=== PATIENT | female | born 1960 | race Caucasian/White ===

== ENCOUNTER 2016-05-31 17:09 | Emergency (ER) | payer OTHER ==
[~2016-05-31] VITALS: Ht 167.6 cm; Wt 88.5 kg
[~2016-05-31 17:09] MED LIST: HYDR-3534 PO; LORT7.5T3 PO; ONDA1TAB16 PO; Z.0.NO CURRENT MEDS; ZOFR4TAB3 SL
[2016-05-31 17:16] VITALS: BP 137/80; PULSE 91; RESP 16; TEMP 99.4; O2SAT 95
--- NOTE | 2016-05-31 17:21 | PD ---
HPI Chief Complaint: Cold / Flu Symptoms Time Seen by Provider: 17:21 Travel History International Travel<30 days: No Contact w/Intl Traveler<30days: No Traveled to known affect area: No History of Present Illness HPI 56-year-old female presents the emergency department with ongoing recurrent cough and cold symptoms since January. Patient states she was last treated in March with azithromycin, steroids, and inhaler, and she improved. Patient states she then got sick again in the last couple of weeks, but now is having increasing cough, chest congestion, chest pain with cough, and sore throat in the last 24 hours. She has also developed fever and chills. She gets short of breath with exertion, and has productive cough of yellow-green sputum. Patient is a smoker. She is allergic to codeine, Gantrisin, iodine, shellfish, sulfa, and Tylox. 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) Reproductive: No Respiratory: No Migraines: Yes Myocardial Infarction: No Renal Failure: No Seizures: Yes (ENCEPHALITIS AT 10 YEARS) Sleep Apnea: No Ulcer: No ?: Not Past Surgical History Abdominal Surgery: Yes (4 LAPAROSCOPIES FOR OVARIAN DISEASE) Appendectomy: No Cardiac Surgery: No Cholecystectomy: No Ear Surgery: No Endocrine Surgery: No Eye Surgery: No Genitourinary Surgery: No Gynecologic Surgery: No Oral Surgery: Yes Thoracic Surgery: No Other Surgery: Yes Social History Alcohol Use: No Tobacco Use: Yes (5-10 CIGS PER DAY) Substance Use: No Allergies-Medications (Allergen,Severity, Reaction): Coded Allergies: Gantrisin (Verified Allergy, Severe, 05/31/16) Tylox (Verified Allergy, Severe, 05/31/16) Iodine (Verified Allergy, Mild, 05/31/16) Shellfish (Verified Allergy, Mild, 05/31/16) Codeine (Verified Allergy, Unknown, Swelling, 05/31/16) Sulfa (Verified Allergy, Unknown, "INCREASES MY LIVER ENZYMES", 05/31/16) Reported Meds & Prescriptions Reported Meds & Active Scripts Active Reported Oxycodone (Oxycodone HCl) 5 Mg Cap 5 Mg PO BID PRN Amlodipine (Amlodipine Besylate) 5 Mg Tab 5 Mg PO DAILY Review of Systems Except as stated in HPI: all other systems reviewed are Neg General / Constitutional: Positive: Fever, Chills Eyes: No: Visual changes HENT: Positive: Sore Throat, Congestion, No: Headaches, Vertigo, Lightheadedness, Rhinitis, Rhinorrhea, Neck Stiffness, Neck Pain, Ear Discharge , Earache Cardiovascular: No: Chest Pain or Discomfort Respiratory: Positive: Cough, Shortness of Breath, Wheezing, Night Sweats, Pleuritic Pain (with cough), No: Sneezing, Orthopnea, Hemoptysis, Stridor Gastrointestinal: No: Nausea, Vomiting, Diarrhea, Abdominal Pain Genitourinary: No: Dysuria Musculoskeletal: No: Pain Skin: No Rash Neurologic: No: Weakness Psychiatric: No: Depression Endocrine: No: Polydipsia Hematologic/Lymphatic: No: Easy Bruising Physical Exam Narrative GENERAL: Patient appears in mild distress. She appears ill but not septic. SKIN: Warm and mild diaphoresis. Normal color. Normal turgor. HEAD: Atraumatic. Normocephalic. EYES: Pupils equal and round. No scleral icterus. No injection or drainage. ENT: No nasal bleeding or discharge. Mucous membranes pink and moist. TMs are clear bilaterally. No significant sinus tenderness patient has clear rhinitis. Pharynx is normal. Airway is patent. NECK: Trachea midline. Supple nontender without significant lymphadenopathy. CARDIOVASCULAR: Regular rate and rhythm. RESPIRATORY: No accessory muscle use. Diffuse end expiratory wheezes to auscultation. No rales or rhonchi. Wet keep sounding cough. Breath sounds equal bilaterally. MUSCULOSKELETAL: Extremities without clubbing, cyanosis, or edema. No obvious deformities. NEUROLOGICAL: Awake and alert. No obvious cranial nerve deficits. Motor grossly within normal limits. Five out of 5 muscle strength in the arms and legs. Normal speech. PSYCHIATRIC: Appropriate mood and affect; insight and judgment normal. Data Data Last Documented VS Vital Signs Date Time Temp Pulse Resp B/P Pulse Ox O2 Delivery O2 Flow Rate FiO2 05/31/16 17:16 99.4 91 16 137/80 95 Orders Chest, Pa & Lat (05/31/16 17:30) Albuterol-Ipratropium Neb (Duoneb Neb) (05/31/16 17:30) Prednisone (Deltasone) (05/31/16 17:30) MDM Medical Decision Making Medical Screen Exam Complete: Yes Emergency Medical Condition: Yes Differential Diagnosis Recurrent bronchitis. COPD with exacerbation. Pneumonia. Narrative Course Patient is ill but medically stable at time of exam. DuoNeb is ordered 1 Patient is given 60 mg prednisone by mouth. Chest x-ray PA and lateral is ordered. Chest x-ray shows no acute findings per radiologist. Patient felt improved after the DuoNeb and prednisone. Patient will be treated with Levaquin 500 mg daily 10 days. Patient is given a prednisone Dosepak as prescribed. Patient is given albuterol metered-dose inhaler 2 puffs every 4-6 hours when necessary. Patient follow-up with her primary care physician a week to ensure improvement. Patient can return to emergency department as needed if symptoms warrant. Diagnosis Primary Impression: Acute wheezy bronchitis Referrals: Primary Care Physician Patient Instructions: Acute Bronchitis (ED), General Instructions, How to Use a Metered-Dose Inhaler (ED) Additional Instructions: Chest x-ray shows no acute findings per radiologist. Patient felt improved after the DuoNeb and prednisone. Patient will be treated with Levaquin 500 mg daily 10 days. Patient is given a prednisone Dosepak as prescribed. Patient is given albuterol metered-dose inhaler 2 puffs every 4-6 hours when necessary. Patient follow-up with her primary care physician a week to ensure improvement. Patient can return to emergency department as needed if symptoms warrant. Med/Other Pt SpecificInfo: Prescription(s) given Disposition: 01 DISCHARGE HOME Condition: Stable Trevon Ambrosio May 31, 2016 17:21
[2016-05-31] MEDS ORDERED: RESP: ALBUTEROL 2.5 MG/IPRATROPIUM 0.5 MG NEB (SCH) INH ONE (17:30)
[2016-05-31] MEDS ORDERED: predniSONE 20 MG TAB PO ONE (17:30)
[2016-05-31] MEDS ORDERED: OXYC1CAP PO (17:36)
[2016-05-31] MEDS ORDERED: AMLO5TAB2 PO (17:36)
--- NOTE | 2016-05-31 18:15 | RADHPO ---
EXAM DATE/TIME: 05/31/2016 17:58 [facility] COMPARISON: No previous studies available for comparison. INDICATIONS : Fever, cough,and congestion. MEDICAL HISTORY : Lupus. SURGICAL HISTORY : None. ENCOUNTER: Initial ACUITY: 2 weeks PAIN SCORE: 10 LOCATION: Bilateral chest FINDINGS: PA and lateral views of the chest demonstrate the lungs to be symmetrically aerated without evidence of mass, infiltrate or effusion. The cardiomediastinal contours are unremarkable. Osseous structure s are intact. CONCLUSION: No acute disease. Rene Camarena MD FACR on May 31, 2016 at 18:13 Board Certified Radiologist. This report was verified electronically.
[2016-05-31] MEDS ORDERED: LEVA500T PO (18:25)
[2016-05-31] MEDS ORDERED: PRED10PA2 PO (18:25)
[2016-05-31] MEDS ORDERED: VENTAER INH (18:25)
== END 2016-05-31 18:34 | disposition home or self-care (01) ==
LOC: PHEFT 17:09
DX: Z72.0 Tobacco use (principal); B19.20 Unspecified viral hepatitis C without hepatic coma; I10 Essential (primary) hypertension; Z87.442 Personal history of urinary calculi; M32.9 Systemic lupus erythematosus, unspecified
CPT/HCPCS: 71020; 94664; 99283; J7512